=== PATIENT | male | born 1965 | race Caucasian/White ===

== ENCOUNTER 2025-03-08 19:08 | Emergency (ER) | payer BC, SELFPAY ==
[2025-03-08 19:11] VITALS: BMI 28.5
[2025-03-08 19:32] VITALS: BP 151/85; PULSE 103; RESP 18; TEMP 38.9; O2SAT 95
--- NOTE | 2025-03-08 19:40 | EKG_ITS ---
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
--- NOTE | 2025-03-08 19:40 | XR_ITS ---
Examination: PA chest single view TECHNIQUE: Upright PA chest single view Date and time: March 08, 2025 2000 hours INDICATIONS: Sepsis protocol FINDINGS: Normal heart size No pneumonia or pulmonary edema Intact osseous structures IMPRESSION: No pneumonia or pulmonary edema
[2025-03-08 19:56] VITALS: TEMP 38.9
[2025-03-08] MEDS: ACETAMINOPHEN 500 MG TABLET 1000 MG PO (19:56)
--- NOTE | 2025-03-08 19:58 | PD.EDFEVER ---
ED Fever RME/HPI General Chief Complaint: Fever Stated Complaint: ABD PAIN, FEVER Time Seen by Provider: 03/08/25 19:35 Arrival date/time: 03/08/25 19:08 RME / HPI RME / HPI Narrative: 60-year-old male patient with significant history of hypertension, neurogenic bladder, came in for evaluation regarding fever. Patient's been having fever for the last 3 days, severity moderate, associated with cough, chest pain and coughing, and lower abdominal pain. Lower abdominal pain started few days ago scribes dull ache, severity moderate. Patient denies any vomiting no diarrhea denies any ill contacts. No medications taken prior travel. Related Data Previous Rx's ?Medication ?Instructions ?Recorded cefdinir 300 mg capsule 300 mg PO BID #14 caps 03/08/25 ibuprofen 800 mg tablet 800 mg PO Q8H PRN pain #30 tabs 03/08/25 Allergies Allergy/AdvReac Type Severity Reaction Status Date / Time ciprofloxacin Allergy Hives Verified 03/08/25 19:10 Penicillins Allergy Hives Verified 03/08/25 19:10 Review of Systems Review of Systems Narrative Review of Systems: Review of system reviewed and within normal limits except mentioned in HPI Physical Exam Narrative Physical exam: VITAL SIGNS: Reviewed. GENERAL APPEARANCE: Alert and interactive, follows commands, no acute distress, febrile HEAD AND FACE: Non-traumatic. ENT: PERRL, pink conjunctivitis, eyelid no trauma, Mucous membrane moist. NECK: Supple, nontender, no nuchal rigidity. CHEST: No tenderness, no crepitus, no paradoxical movement, no retractions. LUNGS: Clear, well ventilated, symmetric, no rales, no wheezing, no ronchi, no stridor, good breath sounds bilaterally. HEART: Regular rate, regular rhythm, no murmur, no gallops. ABDOMEN: Soft, positive bowel sounds, nondistended, no guarding, nontender, no rebound, no masses, RECTAL: Deferred. GENITAL: Deferred. NEUROLOGICAL: Gross motor function intact sensory function intact, Appropriate for age. MUSCULOSKELETAL: low back nontender, full range of motion. EXTREMITIES: Nontender, full range of motion. SKIN: Color pink, dry, no rash, no lacerations, no abrasions, no contusions. LYMPHATICS: Deferred. ED Exam Narrative Physical exam: VITAL SIGNS: Reviewed. GENERAL APPEARANCE: Alert and interactive, follows commands, no acute distress, HEAD AND FACE: Non-traumatic. ENT: PERRL, pink conjunctivitis, eyelid no trauma, Mucous membrane moist. NECK: Supple, nontender, no nuchal rigidity. CHEST: No tenderness, no crepitus, no paradoxical movement, no retractions. LUNGS: Clear, well ventilated, symmetric, no rales, no wheezing, no ronchi, no stridor, good breath sounds bilaterally. HEART: Regular rate, regular rhythm, no murmur, no gallops. ABDOMEN: Soft, positive bowel sounds, nondistended, no guarding, lower abdominal tenderness, no rebound, no masses, RECTAL: Deferred. GENITAL: Deferred. NEUROLOGICAL: Gross motor function intact sensory function intact, Appropriate for age. MUSCULOSKELETAL: low back nontender, full range of motion. EXTREMITIES: Nontender, full range of motion. SKIN: Color pink, dry, no rash, no lacerations, no abrasions, no contusions. LYMPHATICS: Deferred. Course Quality Measures none Orders Category Date Time Status Bedside COVID-19 Antigen Test NOW Care 03/08/25 19:[address] Screening NOW Care 03/08/25 21:05 Active [employer] STAT Care 03/08/25 19:40 Active Continuous Pulse Oximetry STAT Care 03/08/25 19:40 Active EKG (ED ONLY) *Do not use* NOW Care 03/08/25 19:40 Completed In and Out Catheter X1PRN Care 03/08/25 19:40 Active Insert IV NOW Care 03/08/25 19:40 Active NPO STAT Care 03/08/25 19:40 Active Strict Intake and Output Routine Care 03/08/25 19:[address] abdomen pelvis w con Stat Exams 03/08/25 21:05 Completed EKG (ED Only) Stat Exams 03/08/25 19:40 Draft XR chest 1V SEPSIS PROTOCOL Stat Exams 03/08/25 19:40 Completed B-Type Natriuretic Peptide Stat Lab 03/08/25 20:00 Completed Blood Culture (Lab) Stat Lab 03/08/25 20:04 Received CBC Stat Lab 03/08/25 20:00 Completed Comprehensive Metabolic Panel Stat Lab 03/08/25 20:00 Results LDH (Lactate Dehydrogenase) Stat Lab 03/08/25 20:00 Results Lactate (Lactic Acid) Stat Lab 03/08/25 20:00 Completed Lipase Stat Lab 03/08/25 20:00 Results Magnesium Stat Lab 03/08/25 20:00 Results Partial Thromboplastin Time Stat Lab 03/08/25 20:00 Completed Phosphorous Stat Lab 03/08/25 20:00 Results Procalcitonin Stat Lab 03/08/25 20:00 Results Prothrombin Time with INR Stat Lab 03/08/25 20:00 Completed Troponin I Stat Lab 03/08/25 20:00 Results Urinalysis Stat Lab 03/08/25 19:28 Completed Urine Culture Stat Lab 03/08/25 20:31 Received Acetaminophen Tab [Tylenol ES Tab] Med 03/08/25 19:39 Discontinued 1,000 mg PO X1 ONE Sodium Chloride 0.9% 1000 ml [Ns] 1,000 ml Med 03/08/25 19:41 Discontinued IV 999 mls/hr cefTRIAXone/D5w 1gm IV premix [Rocephin/D5w 1gm IV Med 03/08/25 19:41 Discontinued premix] 1 gm in 50 ml IV X1 Oxygen Delivery NOW RT 03/08/25 19:40 Active Vital Signs Vital signs: Vital Signs Temperature 102.1 F H 03/08/25 19:32 Pulse Rate 103 H 03/08/25 19:32 Respiratory Rate 18 03/08/25 19:32 Blood Pressure 151/85 H 03/08/25 19:32 Pulse Oximetry (%) 95 03/08/25 19:32 Oxygen Delivery Method Room Air 03/08/25 19:32 Fever MDM Narrative MDM Narrative:: 60-year-old male patient with significant history of hypertension, neurogenic bladder, came in for evaluation regarding fever. Patient's been having fever for the last 3 days, severity moderate, associated with cough, chest pain and coughing, and lower abdominal pain. Lower abdominal pain started few days ago scribes dull ache, severity moderate. Patient denies any vomiting no diarrhea denies any ill contacts. No medications taken prior travel. CT scan of the abdomen pelvis came back unremarkable. Patient's workup is significant for leukocytosis 12.9 and a significant UTI on urinalysis. Creatinine is normal potassium is normal the rest of the labs unremarkable. Patient was given IV fluids, and IV ceftriaxone. Afebrile prior to discharge. Patient data External records reviewed:: None Clinical information provided by:: patient Social determinants that could affect healthcare access:: none Patient has the following chronic illnesses:: Neuro genic bladder How is presenting disease/condition affected by chronic disease/condition?: exacerbated by Evaluation data The following diagnostics were reviewed and interpreted by me:: lab results and radiology exam(s) Lab and/or radiology exams considered but not ordered:: None Interpretation Summary: See results MDM Medications / Prescriptions Medications or Prescriptions considered but not ordered:: None Medication administrations:: Medication Administration History Discontinued Medications Acetaminophen (Acetaminophen 500 Mg Tablet) 1,000 mg PO X1 ONE Stop: 03/08/25 19:40 Last Admin: 03/08/25 19:56 Dose: 1,000 mg Documented By: Sodium Chloride (Ns) 1,000 mls @ 999 mls/hr IV .Q1H1M ONE Stop: 03/08/25 20:41 Last Infusion: 03/08/25 21:32 Dose: Infused Documented By: Admin: 03/08/25 20:23 Dose: 999 mls/hr Documented By: VG Ceftriaxone Sodium/Dextrose (Rocephin/D5w 1gm Iv Premix) 1 gm in 50 mls @ 100 mls/hr IV X1 ONE Stop: 03/08/25 20:10 Last Infusion: 03/08/25 21:32 Dose: Infused Documented By: Admin: 03/08/25 20:24 Dose: 100 mls/hr Documented By: VG Ceftriaxone IV, IV fluids and Tylenol Consultations Consultation(s) initiated? (list below): No Diagnosis Fever Differential Diagnosis: pyelonephritis and viral infection Most likely diagnosis given after review of the tests above:: UTI Admission Indicated Admission indicated?: not indicated Explain why admission is indicated or not indicated:: Stable Admission Request Was there a request for admission?: No Disposition Plan Disposition Plan: Discharge Discharge Attestation Discharge Attestation: The patient and all family members were given an opportunity to ask questions and understood the discharge instructions. Discharge instructions specifically effects, indications for sooner follow up or return to the emergency department, and the expected course of current diagnosis. Patient condition: Stable Discharge Plan Plan Patient Disposition: HOME (Self Care) Discharge Disposition comment: stable Prescriptions/Referrals Prescriptions/Med Rec: New cefdinir 300 mg capsule 300 mg PO BID Qty: 14 0RF ibuprofen 800 mg tablet 800 mg PO Q8H PRN (Reason: pain) Qty: 30 0RF Referrals: No Primary/Family,Physician [Primary Care Provider] - In 1 week Problem List Clinical Impression: UTI (urinary tract infection) Patient/Caregiver Discharge Instructions Discharge Activity: activity as tolerated Education Materials: Anatomy of the Male Urinary Tract Additional Instructions: Thank you for the opportunity for serving you today. You are stable for discharged . 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
[2025-03-08 20:08] LABS: Lactate (Lactic Acid) 0.9 mMol/L (0.4-2.0)
[2025-03-08 20:09] LABS: Basophils # (Auto) 0.1 Thou/mm3 (0.0-0.2); Basophils % (Auto) 1 % (0-2.5); Eosinophils # (Auto) 0.1 Thou/mm3 (0.0-0.5); Eosinophils % (Auto) 1 % (0-10); Hematocrit 46.3 % (41.0-53.0); Hemoglobin 15.9 g/dL (13.5-16.0); Immature Granulocytes Auto 0.07 Thou/mm3 (0.00-0.00); Lymphocytes # (Auto) 2.5 Thou/mm3 (1.0-4.8); Lymphocytes % (Auto) 19 % (10-50); Mean Corpuscular HGB Conc 34.3 g/dl (31.0-37.0); Mean Corpuscular Hemoglobin 29.3 pg (25.0-35.0); Mean Corpuscular Volume 85 fL (80-100); Monocytes # (Auto) 1.3 Thou/mm3 (0.0-0.8); Monocytes % (Auto) 10 % (0-12); Neutrophils # (Auto) 8.9 Thou/mm3 (1.8-7.7); Neutrophils % (Auto) 70 % (37-80); Nucleated Red Blood Cell # 0.00 Thou/mm3 (0.00-0.00); Nucleated Red Blood Cell % 0 /100 WBC (0); Platelet Count 212 Thou/mm3 (140-440); RDW Standard Deviation 39.9 fL (35.1-43.9); Red Blood Count 5.42 Miln/mm3 (4.50-5.90); White Blood Count 12.9 Thou/mm3 (3.8-10.6)
[2025-03-08] MEDS: SODIUM CHLORIDE 0.9% 1000 ML 1,000 ML 999 ML IV (20:23)
[2025-03-08] MEDS: cefTRIAXone/D5w 1gm IV premix 1 GM/50 ML BAG IV (20:24)
[2025-03-08 20:25] LABS: INR 1.0 (0.9-1.3); Partial Thromboplastin Time 29.1 Seconds (22.0-36.0); Prothrombin Time 10.7 Seconds (9.0-12.2)
[2025-03-08 20:28] LABS: B-Type Natriuretic Peptide < 20 pg/mL (0-100)
[2025-03-08 20:34] LABS: Collection Type, Urine Clean Catch; Squamous Epithelial Cell,Urine 0 /hpf (0-5)
[2025-03-08 20:34] LABS: Alanine Aminotransferase 14 U/L (10-49); Albumin, Serum 4.6 gm/dL (3.4-4.8); Albumin/Globulin Ratio 1.5 (1.2-2.2); Alkaline Phosphatase 100 U/L (46-116); Anion Gap 10 (7-16); Aspartate Amino Transferase 11 U/L (0-34); BUN/Creatinine Ratio 13 Ratio (12-20); Bilirubin,Total 1.0 mg/dL (0.3-1.2); Blood Urea Nitrogen 13 mg/dL (9-23); Calcium 9.9 mg/dL (8.3-10.6); Calcium (Corrected) 9.9 mg/dL (8.5-10.1); Carbon Dioxide 23.3 mMol/L (20.0-31.0); Chloride 105 mMol/L (98-107); Creatinine (Component) 1.0 mg/dL (0.6-1.3); Estimated Creatinine Clearance 92.9 mL/min (>60); Globulin 3.0 gm/dL (2.3-3.5); Glucose 132 mg/dL (74-106); Magnesium 2.0 mg/dL (1.6-2.6); Osmolality,Calculated 277 (275-295); Phosphorous 2.6 mg/dL (2.4-5.1); Potassium 3.4 mMol/L (3.4-5.1); Sodium 138 mMol/L (136-145); Total Protein 7.6 gm/dL (5.7-8.2); Troponin I < 0.020 ng/mL (0.0-0.045); eGFR > 60 See Note
[2025-03-08 20:40] LABS: Bilirubin,Urine Negative (Negative); Blood,Urine Trace (Negative); Clarity,Urine Clear (Clear/Hazy); Color,Urine Yellow (Lt Yel-Yel); Glucose, Urine 4+ (Negative); Ketones,Urine 1+ (Negative); Leukocyte Esterase,Urine Positive (Negative); Nitrite,Urine Negative (Negative); PH,Urine 5.5 (5.0-7.0); Protein,Urine Negative (Neg - Trace); RBC,Urine 7 /hpf (0-3); Specific Gravity,Urine 1.039 (1.001-1.035); Urobilinogen,Urine Negative mg/dL (0.0-1.0); WBC,Urine 56 /hpf (0-5)
--- NOTE | 2025-03-08 21:05 | XR_ITS ---
Examination: CT abdomen with intravenous contrast CT pelvis with intravenous contrast 2-D coronal reconstructions 2-D sagittal reconstructions Date and time of exam:March 08, 2025 at 9:41 PM INDICATIONS: Abdominal pain and fever and hypertension beginning 3 days ago CTDI: vol (mGy) 17.83 DLP: (mGycm) . 864 Technique: Multiple axial sections of the abdomen and pelvis have been obtained. 64 slice high-resolution scanner used. 3 mm axial sections have been obtained, post intravenous injection 60 cc Isovue 370 2-D sagittal, coronal reconstructions obtained. Low dose protocols were performed. One or more of the following dose reduction techniques were used; automated exposure control, adjustment of the mA and/or KV according to patient size, use of iterative reconstruction technique. Findings: No focal liver lesions No gallstones Spleen not enlarged No pancreatic or adrenal mass No renal or ureteral calculi, no hydronephrosis Aorta normal size Normal appendix Mild small bowel ileus Colonic diverticulosis, no diverticulitis Contracted urinary bladder, urinary bladder wall appears thickened Mild prostatomegaly Moderate osteopenia IMPRESSION: No renal or ureteral calculi, no hydronephrosis Normal appendix Urinary bladder wall thickening, differential would include cystitis
[2025-03-08 22:01] VITALS: TEMP 37.5
[2025-03-08 22:02] VITALS: BP 142/83; PULSE 84; RESP 17; TEMP 37.5; O2SAT 95
[2025-03-09 01:33] LABS: LDH (Lactate Dehydrogenase) 158 U/L (120-246); Lipase 26 U/L (12-53); Procalcitonin 0.17 ng/ml (0.0-0.49)
== END 2025-03-08 23:17 | disposition home or self-care (01) ==
PROVIDERS: Nurse Practitioner Family; Emergency Provider Emergency Medicine
DX: N39.0 Urinary tract infection, site not specified (principal); R10.30 Lower abdominal pain, unspecified; R00.0 Tachycardia, unspecified; I10 Essential (primary) hypertension; R05.9 Cough, unspecified; R07.9 Chest pain, unspecified
CPT/HCPCS: 36415; 71045; 74177; 80053; 81001; 83605; 83615; 83690; 83735; 83880; 84100; 84145; 84484; 85025; 85610; 85730; 87040; 87077; 87086; 87186; 87811; 93005; 96365; 99283; A4649; J0696; J7030; Q9967; A9270